=== PATIENT | female | born 1980 | race Two or more races ===

== ENCOUNTER 2022-06-16 16:11 | Emergency (ER) | payer MEDICAID, OTHER ==
[~2022-06-16] VITALS: Ht 157.5 cm; Wt 83.2 kg
[2022-06-16] MEDS ORDERED: ALBUTEROL SULF 2.5 MG/0.5ML(0.5%) NEB SOLN NEB ONE (16:15)
[2022-06-16] MEDS ORDERED: IPRATROPIUM BROM 0.5 MG/2.5ML INH SOL NEB ONE (16:15)
[2022-06-16 16:20] VITALS: BP 141/97
== END 2022-06-16 20:35 | disposition left against medical advice (07) ==
LOC: ER 16:11
DX: J45.909 Unspecified asthma, uncomplicated (principal); Z53.21 Procedure and treatment not carried out due to patient leaving prior to being seen by health care provider
CPT/HCPCS: 94640; J7644